=== PATIENT | male | born 1940 | race African-American/Black ===

== ENCOUNTER 2017-01-17 10:39 | Inpatient (IN) ==
[2017-01-17] MEDS ORDERED: ONDANSETRON 4 MG/2 ML VIAL IV PRN (10:58)
[2017-01-17] MEDS ORDERED: PANTOPRAZOLE 40 MG VIAL IV STA (10:58)
[2017-01-17] MEDS ORDERED: SODIUM CHLORIDE 0.9% 1,000 ML IV STA (10:58)
--- NOTE | 2017-01-17 11:02 | Emergency Department Note ---
Tamir Taylor Brooke, am scribing for, and in the presence of, Kg Ibarra MD 11:01 . Stacey Taylor James D, MD, personally performed the services described in this documentation, ascribed by Tania Garnett in my presence, and it is both accurate and complete . Arrival - Arrival Chief Complaint: GI Bleed/Rectal Stated Complaint: weakness losing blood ED Nursing Triage Note: Pt c/o dark colored blood in his stool with weakness x 1 wk. Denies abd pain. Mode of Arrival: Ambulatory Limitations: No Limitations Source: Patient, RN Notes Reviewed Time Seen by Provider: 01/17/17 10:51 - History of Present Illness HPI Narrative: Patient is a 76 year old male who presents to the ED with c/o melena that started about a week ago. Patient says he has been dizzy and had dysuria, also. He denies having any abdominal pain. He does not use Goodys, BC, Aleve, or Advil frequently. He does not have a history of stomach ulcers and has never been scoped in the past. Patient says he started an iron supplement "last week. " He has PMHx of HTN. His Primary Care Provider is Dr. Rajan. He is not a smoker. Onset (ago): week(s) (1) Allergies/Adverse Reactions: Allergies Allergy/AdvReac Type Severity Reaction Status Date / Time No Known Allergies Allergy Verified 01/17/17 10:41 Home Medications: Home Medications Medication Instructions Recorded Confirmed Type Atenolol 50 mg PO DAILY 01/17/17 01/17/17 History Cyanocobalamin (Vitamin B-12) 1,000 mcg PO DAILY 01/17/17 01/17/17 History [Vitamin B-12] Ferrous Sulfate 325 mg PO BID 01/17/17 01/17/17 History Tamsulosin [Flomax] 0.4 mg PO DAILY 01/17/17 01/17/17 History amLODIPine [Norvasc] 10 mg PO DAILY 01/17/17 01/17/17 History Review of System - Review of System 12 point system: reviewed and no additional remarkable complaints except as stated - Review of System Constitutional: Absent: fever Respiratory: Absent: respiratory distress Gastrointestinal: Present: melena. Absent: abdominal pain Genitourinary male: Present: dysuria Skin: Absent: rash Neurological: Present: other (dizziness) Medical,Surgical,& Family Hx - Medical History Cardio: History of: Hypertension Genitourinary: History of: Bladder Problem - Social History Smoking Status: Former smoker Exam Vital Signs: Vital Signs Temperature 98.5 F 01/17/17 10:40 Pulse Rate 141 H 01/17/17 10:40 Respiratory Rate 20 01/17/17 10:40 Blood Pressure 113/54 01/17/17 10:40 O2 Sat by Pulse Oximetry 100 01/17/17 10:40 GENERAL: This is a well-nourished well-developed black male in no apparent distress. VITAL SIGNS: Reviewed HEENT: Head is atraumatic and normocephalic. Pupils are equal round react to light. Extraocular movements are intact. Oropharynx is benign with moist mucous membranes. NECK: Neck is soft and supple without tenderness. There are no masses. There is no lymphadenopathy. LUNGS: Lungs are clear to auscultation. Chest rises symmetrically. There is no chest wall tenderness. CV: Heart is regular rate and rhythm without murmurs rubs or gallops. ABDOMEN: Abdomen is soft, nontender to palpation. There are no abdominal abnormal masses palpated. There is no organomegaly. Bowel sounds are present and active. Rectal: Melenic, heme positive. SKIN: Skin is warm and dry. No rash. EXTREMITIES: Patient has full range of motion without tenderness. There is no pedal edema. NEUROLOGIC: Awake alert and oriented 4. Cranial nerves II through XII are grossly intact. Motor is 5 over 5 in all extremities bilaterally. Course - Consultations Consultation #1: Discussed with hospitalist. Patient will be admitted to their service. Time: 12:09 Results - Labs CBC & BMP: 01/17/17 11:32 Lab Results: I have reviewed the patients labs - Diagnostic Findings Procedure: Abdominal x-ray: image reviewed by me (Nonspecific gas pattern, no free air. Endograft present in the aorta and iliac vessels.), Chest x-ray: image reviewed by me (No infiltrates, no pleural effusions per) Disposition Clinical Impression: Upper GI bleed, Anemia Case discussed with: patient Disposition: Still a Patient Condition: Stable Time of Disposition: 12:07
--- NOTE | 2017-01-17 11:21 | XRay Report ---
XR chest 1V portable Indication: Shortness of breath Comparison: 25 June 2012 Findings: The heart and mediastinum are normal in size and configuration. The pulmonary vascularity is normal in caliber. Lung volumes are increased with prominent bronchial markings. No lung infiltrates, effusions, pneumothorax or other abnormality is demonstrated. Impression: Chronic lung changes. No acute process or significant change. PROCEDURE INTERPRETED AT [facility] DEPARTMENT OF RADIOLOGY Final Report Signed by: Dr. Lopez Raymundo
--- NOTE | 2017-01-17 11:22 | XRay Report ---
XR abdomen complete w decub Indication: Abdominal pain Comparison: 19 August 2011 Findings: No free fluid or free air seen. The bowel gas pattern appears within normal limits. Aortic stent graft is present, appears similar to previous exam. No abnormal calcifications are present. No other abnormality is identified. Impression: No evidence of acute findings or significant change demonstrated. PROCEDURE INTERPRETED AT [facility] DEPARTMENT OF RADIOLOGY Final Report Signed by: Dr. Lopez Raymundo
[2017-01-17 11:45] LABS: Basophils % 0.1 % (0.0-0.8); Eosinophils # 0.1 10*3/uL (0.0-0.87); Eosinophils % 0.8 % (0.00-10.9); Immature Granulocytes % 1.3 %; Immature Granulocytes Absolute 0.21 #; Lymphocytes # 1.7 10*3/uL (1.4-4.0); Mean Corpuscular HGB Conc 29.3 GM/DL (32-36); Mean Corpuscular Hemoglobin 28 PG (27-34); Mean Corpuscular Volume 94.6 FL (87-102); Mean Platelet Volume 9.6 FL (9.6-12.0); Monocytes # 0.9 10*3/uL (0.11-0.8); Monocytes % 5.9 % (1.7-12.7); NRBC # 0.11 10*3/uL; Neutrophils # 12.8 10*3/uL (1.4-7.4); Neutrophils % 80.9 % (38.7-73.9); Platelet Count 460 T/CUMM (130-400); Red Blood Count 1.66 MC/CUMM (3.8-5.5); Red Cell Distribution Width 19.9 % (9.3-17.3); White Blood Count 15.8 T/CUMM (4-12)
[2017-01-17 11:52] LABS: Hematocrit 15.7 VOL% (42.0-52.0); Hemoglobin 4.6 GM/DL (14.0-18.0)
[2017-01-17 11:57] LABS: PT Patient Result 11.1 SECS; Partial Thromboplastin Time 24.7 SECS (0-40)
[2017-01-17] MEDS ORDERED: PANTOPRAZOLE 40 MG VIAL IV ONE (11:58)
[2017-01-17] MEDS ORDERED: SODIUM CHLORIDE 0.9% 250 ML IV PRN ×2 (12:09→12:16)
[2017-01-17 12:12] LABS: Alanine Aminotransferase 9 U/L (16-61); Albumin 2.4 G/DL (3.4-5.0); Alkaline Phosphatase 68 U/L (45-117); Aspartate Amino Transferase 8 U/L (0-37); Bilirubin,Total < 0.39 MG/DL (0.2-1.0); Blood Urea Nitrogen 44 MG/DL (7-18); Calcium 8.2 MG/DL (8.5-10.1); Glucose 118 MG/DL (74-106); Osmolality,Calculated 297.8 MOS/KG (273-304); Potassium 4.2 MMOL/L (3.5-5.1); Sodium 144 MMOL/L (136-145); Total Protein 7.4 G/DL (6.4-8.3)
--- NOTE | 2017-01-17 13:41 | Hospitalist History & Physical ---
Assessment and Plan (1) Acute kidney injury Status: Acute Assessment and plan: BUN and creatinine noted at 44/2.00. This may be largely due to volume depletion. We will gently rehydrate and reassess in a.m. Current Visit: Yes (2) Anemia Status: Acute Assessment and plan: H&H is noted at 4.6/15.7 at the time of admission. The patient had been previously on iron supplements for the treatment of chronic anemia. We will type and screen and transfuse 2 units of packed red blood cells. Gastroenterology consultation has been requested to assist during the clinical encounter. The patient reports a previous blood transfusion in the past about 4 years ago secondary to hematuria. Current Visit: Yes Qualifiers: Anemia type: unspecified type Qualified Code(s): D64.9 - Anemia, unspecified (3) Upper GI bleed Status: Acute Current Visit: Yes History of Present Illness Chief complaint: Rectal bleeding/ weakness History of present illness: This is a very pleasant 68-year-old male that presented to the ED at [facility] this morning for the evaluation of rectal bleeding. The patient has a medical history significant for hypertension and benign prostatic hypertrophy. Patient reports no significant surgical history. The patient reported the onset of symptoms 1 week prior to presentation. Patient denies current NSAID use nor aspirin-containing products. He reports that he was recently seen by his primary care physician regarding this issue. He reports that he was started on iron supplements and told to take the iron supplements daily. He reports that he adhere to what his primary care physician told him however the episodes of bloody stools never stopped. The patient subsequently presented to the ED for further evaluation. The patient was assessed at the time of ED presentation. The patient was noted to be tachycardic with a heart rate noted at 141. Labs were obtained; complete blood count reported white blood cell count at 15.8, hemoglobin 4.6, hematocrit 15.7, platelet count 8460. Basic metabolic profile reported sodium at 144, potassium 4.2, chloride 112, carbon dioxide 23, BUN 44, creatinine 2.30, and glucose at 118. Digital examination was performed at bedside; heme-positive stools were noted. Abdominal x-ray was performed no significant intra- abdominal processes were noted. Chest x-ray was essentially unremarkable for any acute cardiopulmonary processes. After brief discussion with both Dr. Ibarra and Dr. Tineo, the patient will be admitted to the hospitalist services for continuation of care. Due to the severity of the patient's anemia, the patient will be placed in the critical care setting. A gastroenterology consultation will be requested to evaluate and assist during the clinical encounter. Medications have been reviewed and reconciled. CODE STATUS has been discussed, the patient is a FULL CODE. Home Medications Medication Instructions Recorded Confirmed Type Atenolol 50 mg PO DAILY 01/17/17 01/17/17 History Cyanocobalamin (Vitamin B-12) 1,000 mcg PO DAILY 01/17/17 01/17/17 History [Vitamin B-12] Ferrous Sulfate 325 mg PO BID 01/17/17 01/17/17 History Tamsulosin [Flomax] 0.4 mg PO DAILY 01/17/17 01/17/17 History amLODIPine [Norvasc] 10 mg PO DAILY 01/17/17 01/17/17 History Allergies Allergy/AdvReac Type Severity Reaction Status Date / Time No Known Allergies Allergy Verified 01/17/17 10:41 Medical,Surgical,& Family Hx - Medical History Cardio: History of: Hypertension Genitourinary: History of: Bladder Problem - Social History Smoking Status: Former smoker Frequency of Alcohol Use: Rarely Type of Drug Use: None Exam - Constitutional Vitals: Period Temp Pulse Resp BP Sys/Yanez Pulse Ox Last 24 Hr 98.5 F-98.9 F 108-141 20-20 113-140/54-103 100-100 General appearance: normal weight - Head Head exam: Present: normal inspection, normocephalic, atraumatic - Eye Eye exam: Present: EOMI. Absent: conjunctival injection Pupils: Present: MARTY, normal accommodation - ENT ENT exam: Present: normal exam, normal external ear exam, normal oropharynx - Neck Neck exam: Present: normal inspection. Absent: lymphadenopathy, meningismus, tenderness, thyromegaly - Respiratory Respiratory exam: Present: clear to auscultation bilaterally. Absent: rales, rhonchi, stridor, wheezes - Cardiovascular Cardiovascular exam: Present: tachycardia. Absent: carotid bruit, diastolic murmur, gallop, JVD, rubs, other - GI/Abdominal GI/Abdominal exam: Present: normal bowel sounds, soft - Extremities Exam Extremities exam: Present: normal inspection, normal capillary refill, full ROM. Absent: edema - Back Exam Back exam: Present: normal inspection - Neurological Exam Neurological exam: Present: alert, oriented X3, CN II-XII intact - Psychiatric Psychiatric exam: Present: normal affect, normal mood - Skin Skin exam: Present: normal color, warm, dry Results - Labs CBC & BMP: 01/17/17 11:32 01/17/17 11:32 Lab Results: I have reviewed the past 24 hour labs
[2017-01-17 13:56] LABS: Hematocrit 14.3 VOL% (42.0-52.0); Hemoglobin 4.1 GM/DL (14.0-18.0)
--- NOTE | 2017-01-17 15:35 | Gastrointestinal Consult Note ---
Assessment and Plan (1) Melena Status: Acute Assessment and plan: This may simply be the iron that is producing the blackness to the stool that the patient states that he has been on intermittently, however his hematocrit is significantly dropped since he was seen back by Dr. Vu. 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 He did have pandiverticulosis which was also thought potentially be another bleeding source. This typically would produce maroon stools are not black. Black stools indicating a loss of blood above the ligament of Treitz. We will perform upper endoscopy tomorrow to be followed by a colonoscopy on Tuesday morning, 01/19/17. Risks and benefits of the above procedure include but are not limited to: Bleeding, infection, perforation, cardiac and pulmonary compromise, and we did talk about side effects from the hemorrhoidal banding if he requires this. The patient is experiencing grade 3 hemorrhoids with prolapse of hemorrhoidal tissue into the rectum. Current Visit: Yes (2) Personal history of arteriovenous malformation (AVM) Status: Acute Assessment and plan: This was discovered on previous capsule endoscopy back in November 2005 this may be progressive at this point. Will check and see if we can find further AVMs in the small bowel when penetrated by the upper scope and potentially during colonoscopy when we do our evaluation of the terminal ileum. Hold oral iron for the present time. Bowel prep to be given tomorrow afternoon in anticipation of colonoscopy the following day. Current Visit: Yes (3) Acute posthemorrhagic anemia Status: Acute Assessment and plan: As noted above. Current Visit: Yes History of Present Illness Chief complaint: Who has a history of black stools and previous history of GI History of present illness: Mr. Arce is a 76 year old male with EGD and colonoscopy done by Dr. Vu back in 01/06/05, at that time upper endoscopy did not show a bleeding source and there was no evidence of esophagitis or varices. The patient ended up getting a colonoscopy that followed which showed blood that appeared to be coming from the ileocecal valve there was quite dark at the time. There was no evidence of ischemic colitis or bleeding site identified. There was some mild diverticulosis in all segments and this was thought potentially to be a source for bleeding as well. It is not clear from reading through the reports if Dr. Vu got far up into the ileocecal valve to determine whether or not the bleeding appeared to be coming from above definitively. 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 He did well for many years and has since [place] [facility] [place]. Micha bah before his [facility]. Patient's hematocrit is now dropped to 14.3 with a hemoglobin of 4.1 g/dL. Interestingly the coagulation studies are normal with an INR of 1.0 and a PTT of 11.1. The patient is mildly renal and with a BUN of 44 and a creatinine of 2.0 at this time. Liver function tests are within normal limits. He has been taking iron for the last 2 months, but it sounds also like he has chronically required this from time to time and is recently re-asked Dr. Rajan to start this once more. He does have some minimal reflux symptoms. He is also been following with Dr. Campos for hematuria. He does not recall seeing bright red blood per rectum just the dark stool. He feels weak and does have some very mild reflux symptoms and some low-grade constipation with one bowel movement every other day. He has not had colonoscopy since 2004 as mentioned above. Home Medications Medication Instructions Recorded Confirmed Type Atenolol 50 mg PO DAILY 01/17/17 01/17/17 History Cyanocobalamin (Vitamin B-12) 1,000 mcg PO DAILY 01/17/17 01/17/17 History [Vitamin B-12] Ferrous Sulfate 325 mg PO BID 01/17/17 01/17/17 History Tamsulosin [Flomax] 0.8 mg PO DAILY 01/17/17 01/17/17 History amLODIPine [Norvasc] 10 mg PO DAILY 01/17/17 01/17/17 History Allergies Allergy/AdvReac Type Severity Reaction Status Date / Time No Known Allergies Allergy Verified 01/17/17 10:41 Medical,Surgical,& Family Hx - Medical History Cardio: History of: Aneurysm, Hypertension Renal: History of: Renal Problems (urinating blood with burning) Genitourinary: History of: Bladder Problem Gastrointestinal: History of: Gastrointestinal Bleed Hematology: History of: Anemia - Surgical History Cardiac Surgeries: Sugical HX of: Cardiac Surgery (anneurysm repair?) - Social History Smoking Status: Former smoker Frequency of Alcohol Use: Rarely Type of Drug Use: None Review of systems: Constitutional: Denies fever, chills, nausea, and vomiting Eyes: Denies dry eyes, and scleral icterus HENT: Denies headaches Cardiovascular: Denies acute chest pain and claudication Respiratory: Denies shortness of breath, wheezing, and difficulty breathing, denies cough Gastrointestinal: As noted in the HPI Genitourinary: Denies dysuria and hematuria Neurologic: Denies vision loss, and loss of sensation Musculoskeletal: The patient does admit to joint swelling, joint stiffness, and muscular weakness Psychiatric: Denies depression and nicole symptoms Heme-Lymph: Denies easy bruising, lymph node enlargement or tenderness, night sweats, excessive bleeding Allergies-immunologic: Denies pruritus and rhinorrhea Exam - Constitutional Vitals: Period Temp Pulse Resp BP Sys/Yanez Pulse Ox Last 24 Hr 98.5 F-98.9 F 105-141 14-26 113-140/54-103 100-100 General appearance: no acute distress Exam: Constitutional: Well-developed, well-nourished, alert, and in no acute distress Head and face: Head: Normocephalic atraumatic Eyes: Conjunctiva without injection, no gross scleral icterus, pupils equal and round bilaterally Ears: Intact to conversation in both ears Nose: External appearance is normal, nares patent Mouth: Oral mucous membranes moist without erythema dentition noted to be without erosion Neck: Normal appearance, no masses or tenderness, trachea midline Thyroid: Gland midline and appropriate size for age Respiratory: Normal respiratory effort, clear to auscultation without wheezes, rhonchi or rales Cardiovascular: Regular rate and rhythm, normal S1, S2, the exam is without rubs, murmurs or gallops. Gastrointestinal: Nontender to palpation, normal active bowel sounds, tone normal without rigidity or guarding, no masses present, no hepatomegaly, no spleen tip felt. Rectal exam shows very high rectal tone stool was black and grossly guaiac positive. Lymphatic: Neck without adenopathy, axilla without lymphadenopathy present Musculoskeletal: Right and left lower extremities without evidence of edema Skin and subcutaneous tissue: No rashes or ulcerations noted, normal skin turgor, digits and nails without clubbing/cyanosis/deformities. Neurologic: The patient is grossly oriented to person place and time, cranial nerves show tongue movements are normal with normal tongue extrusion midline, light touch sensation is intact. Psychiatric: No hallucinations or delusions are present, does not appear depressed Results - Labs CBC & BMP: 01/17/17 13:30 01/17/17 11:32
[2017-01-17 20:04] LABS: Hematocrit 15.3 VOL% (42.0-52.0)
[2017-01-17 20:05] LABS: Hemoglobin 4.4 GM/DL (14.0-18.0)
[2017-01-17] MEDS: PANTOPRAZOLE 40 MG VIAL IV SCH (21:00)
[2017-01-18 05:15] LABS: Hematocrit 20.6 VOL% (42.0-52.0)
[2017-01-18 05:19] LABS: Basophils % 0.2 % (0.0-0.8); Eosinophils # 0.3 10*3/uL (0.0-0.87); Eosinophils % 2.8 % (0.00-10.9); Hematocrit 20.7 VOL% (42.0-52.0); Hemoglobin 6.3 GM/DL (14.0-18.0); Immature Granulocytes % 0.9 %; Immature Granulocytes Absolute 0.09 #; Lymphocytes # 1.6 10*3/uL (1.4-4.0); Lymphocytes % 16.1 % (21.2-54.2); Mean Corpuscular HGB Conc 30.9 GM/DL (32-36); Mean Corpuscular Hemoglobin 29 PG (27-34); Mean Corpuscular Volume 92.8 FL (87-102); Mean Platelet Volume 9.6 FL (9.6-12.0); Monocytes # 0.6 10*3/uL (0.11-0.8); Monocytes % 6.4 % (1.7-12.7); NRBC # 0.06 10*3/uL; Neutrophils # 7.4 10*3/uL (1.4-7.4); Neutrophils % 73.6 % (38.7-73.9); Platelet Count 396 T/CUMM (130-400); Red Blood Count 2.23 MC/CUMM (3.8-5.5); Red Cell Distribution Width 18.2 % (9.3-17.3); White Blood Count 10.1 T/CUMM (4-12)
[2017-01-18 05:21] LABS: PT Patient Result 11.1 SECS
[2017-01-18 05:22] LABS: Hemoglobin 6.4 GM/DL (14.0-18.0)
[2017-01-18] MEDS: BISACODYL 5 MG TABLET PO SCH ×4 (06:09→17:30)
[2017-01-18] MEDS ORDERED: PROPOFOL 200 MG/20 ML VIAL IV ONE (09:03)
[2017-01-18] MEDS ORDERED: LIDOCAINE 2% 5 ML VIAL ONE (09:03)
--- NOTE | 2017-01-18 09:17 | Operative Note ---
Date of procedure: 01/18/17 Pre-op diagnosis: Melena, posthemorrhagic anemia, prior history of small bowel AVMs. Post-op diagnosis: other (No gross evidence of an upper GI bleeding source., some mild gastritis seen and a small hiatal hernia but otherwise relatively normal upper endoscopy.) Procedure: PROCEDURE: Esophagogastroduodenoscopy (EGD) with cold biopsy for pathology REFERRING PHYSICIAN: Phyllis Tineo MD INDICATIONS: Melena now with posthemorrhagic anemia and a prior history of small bowel AVMs as noted on capsule endoscopy by Dr. Vu. Hematocrit previously 14.3 now up to 20% posttransfusion. The prior H&P was reviewed and interrim changes are as noted: No change from GI consultation on 12/18/16. ENDOSCOPIST: Portillo Momin MD ENDOSCOPE: [employer] Video 100 System upper endoscope ASA CLASS: EXAM: CV: regular rate and rhythm respiratory: Clear without wheezes abdominal: active bowel sounds MEDICATION: Per nursing anesthesia protocol, see their notes PROCEDURE: After discussion of the potential risks and benefits of upper endoscopy, the informed consent was obtained. The patient was then placed in the left lateral decubitus position where sedation was achieved as noted above. Esophageal intubation was performed without difficulty, and the endoscope was advanced through the esophagus, stomach and duodenum. A slow withdrawal was then performed with retroflexion in the stomach for careful inspection of the incisura angularis, fundus and cardia. The scope was then returned to a neutral position and withdrawn through the esophagus. The patient tolerated the procedure well and without complication. BIOPSIES: Gastric antrum/body, duodenal biopsies obtained PHOTOGRAPHS: Obtained FINDINGS: Hypopharynx and Larynx: Normal Esohagoscopy Upper and middle thirds: Normal Lower third normal Esophogastric junctions: Normal if tortuous, no gross evidence of stricturing, Keller's or esophagitis. Gastroscopy: Cardia/Fundus: 2 cm hiatal hernia noted Body: Normal Antrum and pylorus mild erythema, biopsied for gastritis Duodenoscopy: Bulb normal-appearing, biopsied for sprue Second and third portions: Normal-appearing, biopsied for sprue IMPRESSION: No gross evidence of an upper GI bleeding source., some mild gastritis seen and a small hiatal hernia but otherwise relatively normal upper endoscopy. RECOMMENDATIONS: Follow up for biopsy results in 1-2 weeks by phone [phone] Continue anti-gastroesophageal reflux measures (avoid carbonated and acidic beverages, avoid eating within 2 hours of bedtime, avoid tight fitting clothing , and elevate the front bed posts 6 inches prior to sleeping. Given this patient's extreme drop in hematocrit, and the prior melana that has been obscuring colonoscopy on his last visit with Dr. Vu will go ahead and repeat colonoscopy in addition to look for evidence of a bleeding source in the colon as well. Portillo Momin MD COPY TO: Phyllis Tineo MD Anesthesia: MAC Surgeon / Physician: Portillo Momin Estimated blood loss: minimal Specimens: other (Gastric antrum/body, duodenum rule out sprue) Condition: stable Disposition: post procedure unit ([facility]) Results - Labs CBC & BMP: 01/18/17 04:41 01/17/17 11:32 Discharge Plan - Discharge Medications No Action amLODIPine [Norvasc] 10 mg PO DAILY Tamsulosin [Flomax] 0.8 mg PO DAILY Ferrous Sulfate 325 mg PO BID Cyanocobalamin (Vitamin B-12) [Vitamin B-12] 1,000 mcg PO DAILY Atenolol 50 mg PO DAILY - Follow Up or Referral - Forms/Instructions
--- NOTE | 2017-01-18 09:22 | Gastrointestinal Progress Note ---
Assessment and Plan (1) Melena Status: Acute Assessment and plan: This may simply be the iron that is producing the blackness to the stool that the patient states that he has been on intermittently, however his hematocrit is significantly dropped since he was seen back by Dr. Vu. 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 He did have pandiverticulosis which was also thought potentially be another bleeding source. This typically would produce maroon stools are not black. Black stools indicating a loss of blood above the ligament of Treitz. We will perform upper endoscopy tomorrow to be followed by a colonoscopy on Tuesday morning, 01/19/17. Risks and benefits of the above procedure include but are not limited to: Bleeding, infection, perforation, cardiac and pulmonary compromise, and we did talk about side effects from the hemorrhoidal banding if he requires this. The patient is experiencing grade 3 hemorrhoids with prolapse of hemorrhoidal tissue into the rectum. 01/18/17--Patient is having no further black stools, he has responded to the transfusions given with acute increase in his hematocrit from 14-20%. Patient has been experiencing some hemorrhoidal prolapse with his passage of stools, we will likely proceed with colonoscopy tomorrow as there was no cause for the patient's dark stools today and anemia noted on upper endoscopy today. He had some mild erythema in his stomach but otherwise normal upper endoscopy aside from a hiatal hernia. Current Visit: Yes (2) Personal history of arteriovenous malformation (AVM) Status: Acute Assessment and plan: This was discovered on previous capsule endoscopy back in November 2005 this may be progressive at this point. Will check and see if we can find further AVMs in the small bowel when penetrated by the upper scope and potentially during colonoscopy when we do our evaluation of the terminal ileum. Hold oral iron for the present time. Bowel prep to be given tomorrow afternoon in anticipation of colonoscopy the following day. 01/18/17--This may end up being the cause for the patient's bleeding however given the amount of time that he is had since his last colonoscopy I think we need to recheck for lower GI bleeding sources as well. Colonoscopy planned for tomorrow. Risks include bleeding, infection, perforation, cardiac and pulmonary compromise as these were also present for the upper endoscopy today. Further recommendations post colonoscopy. Current Visit: Yes (3) Acute posthemorrhagic anemia Status: Acute Assessment and plan: As noted above. 01/18/17--the patient's hematocrit is stable, increasing posttransfusion. Continued observation is required. Clear liquid diet today with upcoming prep for tomorrow. Current Visit: Yes Gastroenterology - PN: Subj Interval history: No new complaints Exam (Progress Note) - Constitutional Vitals: Period Temp Pulse Resp BP Sys/Yanez Pulse Ox Last 24 Hr 97.1 F-99.5 F 83-141 14-28 102-157/53-103 100-100 General appearance: no acute distress - Eye Eye exam: Present: EOMI - Respiratory Respiratory exam: Present: clear to auscultation bilaterally - Cardiovascular Cardiovascular exam: Present: regular rate and rhythm - GI/Abdominal GI/Abdominal exam: Present: normal bowel sounds, soft - Extremities Exam Extremities exam: Absent: edema - Neurological Exam Neurological exam: Present: alert, oriented X3, CN II-XII intact. Absent: motor sensory deficit - Psychiatric Psychiatric exam: Present: normal affect, normal mood - Skin Skin exam: Present: warm Results - Labs CBC & BMP: 01/18/17 04:41 01/17/17 11:32
--- NOTE | 2017-01-18 09:23 | Anesthesia Post-Op ---
Anesthesia Post OP - Post Ansesthetic Evaluation Patient seen in post op: Yes Resp: within normal limits CV: within normal limits Mental: within normal limits Temp: within normal limits [id number]-[id number]: within normal limits Nausea and Vomiting: within normal limits Pain: within normal limits
[2017-01-18] MEDS: PANTOPRAZOLE 40 MG VIAL IV SCH ×2 (10:15→21:05)
[2017-01-18] MEDS: TAMSULOSIN 0.4 MG CAPSULE PO SCH (10:15)
--- NOTE | 2017-01-18 11:24 | Hospitalist Progress Note ---
Assessment and Plan (1) GIB (gastrointestinal bleeding) Status: Acute Assessment and plan: 1)GIB- no source in upper tract. has a history of SB AVM seen on pill cam in the past. Cscope in the morning. transfuse with 2 more units. and continue serial H&H. On PPI. 2)CHARLIE- improving with transfusion/volume. recheck creatinine in the morning. 3)bladder problem with frequent UTI 4)reassess for transfer out of ICU later this afternoon. Current Visit: Yes (2) Acute kidney injury Status: Acute Current Visit: Yes (3) Melena Status: Acute Current Visit: Yes (4) Personal history of arteriovenous malformation (AVM) Status: Acute Current Visit: Yes (5) Acute posthemorrhagic anemia Status: Acute Current Visit: Yes Hospitalist: Subjective Interval history: Mr Arce is feeling better after transfusion though his HGB is around 6. His blood must come from [place] because he has an antibody, and I have ordered 2 more units He denies nausea or vomiting. At EGD there was not a source of GIB seen, so he will have cscope in the morning. Exam - Constitutional Vitals: Period Temp Pulse Resp BP Sys/Yanez Pulse Ox Last 24 Hr 97.1 F-99.5 F 83-141 14-28 102-157/53-103 95-100 General appearance: normal weight, no acute distress - Eye Eye exam: Present: EOMI. Absent: scleral icterus - Respiratory Respiratory exam: Present: clear to auscultation bilaterally - Cardiovascular Cardiovascular exam: Present: regular rate and rhythm - GI/Abdominal GI/Abdominal exam: Present: normal bowel sounds, soft. Absent: tenderness - Extremities Exam Extremities exam: Absent: edema - Neurological Exam Neurological exam: Present: alert, oriented X3 Results - Labs CBC & BMP: 01/18/17 04:41 01/17/17 11:32 Lab Results: I have reviewed the past 24 hour labs
[2017-01-18 12:18] LABS: Hematocrit 22.4 VOL% (42.0-52.0); Hemoglobin 6.9 GM/DL (14.0-18.0)
[2017-01-18] MEDS ORDERED: SODIUM CHLORIDE 0.9% 250 ML IV SCH (14:00)
[2017-01-18] MEDS ORDERED: POLYETHYLENE GLYCOL 3350/ELECTROLYTES 4,000 ML BOTTLE PO ONE (16:00)
[2017-01-18] MEDS ORDERED: POLYETHYLENE GLYCOL POWDER 255 GM BOTTLE PO ONE (18:00)
[2017-01-18] MEDS ORDERED: MAGNESIUM CITRATE 300 ML BOTTLE PO ONE (21:00)
[2017-01-19] MEDS: BISACODYL 5 MG TABLET PO SCH ×2 (00:12→03:33)
[2017-01-19 07:33] LABS: Basophils % 0.1 % (0.0-0.8); Eosinophils # 0.2 10*3/uL (0.0-0.87); Eosinophils % 1.5 % (0.00-10.9); Hematocrit 30.9 VOL% (42.0-52.0); Immature Granulocytes % 0.6 %; Immature Granulocytes Absolute 0.08 #; Lymphocytes # 1.3 10*3/uL (1.4-4.0); Lymphocytes % 10.3 % (21.2-54.2); Mean Corpuscular HGB Conc 31.4 GM/DL (32-36); Mean Corpuscular Hemoglobin 29 PG (27-34); Mean Corpuscular Volume 91.7 FL (87-102); Mean Platelet Volume 9.7 FL (9.6-12.0); Monocytes # 0.7 10*3/uL (0.11-0.8); Monocytes % 5.6 % (1.7-12.7); NRBC # 0.02 10*3/uL; Neutrophils # 10.6 10*3/uL (1.4-7.4); Neutrophils % 81.9 % (38.7-73.9); Platelet Count 448 T/CUMM (130-400); Red Cell Distribution Width 18.4 % (9.3-17.3)
[2017-01-19 07:44] LABS: PT Patient Result 10.9 SECS
[2017-01-19 07:47] LABS: Red Blood Count 3.37 MC/CUMM (3.8-5.5)
[2017-01-19 07:48] LABS: Hemoglobin 9.7 GM/DL (14.0-18.0)
[2017-01-19 08:09] LABS: Calcium 8.4 MG/DL (8.5-10.1); Osmolality,Calculated 288.8 MOS/KG (273-304); Potassium 4.2 MMOL/L (3.5-5.1)
[2017-01-19] MEDS: PANTOPRAZOLE 40 MG VIAL IV SCH (10:04)
[2017-01-19] MEDS: TAMSULOSIN 0.4 MG CAPSULE PO SCH (10:04)
--- NOTE | 2017-01-19 11:30 | Pathology Report from [facility] ---
[facility] ACCESSION # : [id number] PATIENT NAME : Jesus Cedillo ORDERING DR : Portillo Momin MD CLINICAL HX: GI bleed POST-OP DX: Same SPECIMEN INFO: #1 Small bowel #2 CELE GROSS DESCRIPTION: Received in formalin in two parts labeled:#1 JESUS CEDILLO & #1 is a yellow holt mucosal tissue fragment measuring 0.9 x 0.4 cm submitted in cassette #1.#2 JESUS CEDILLO & #2 is an aggregate of white holt mucosal mucosal tissue measuring 1 x 0.3 cm submitted in cassette #2. DIAGNOSIS FOR JESUS CEDILLO: #1 SMALL BOWEL BIOPSY: Benign small bowel mucosa with normal villous architecture and mild chronic inflammation. No evidence of sprue. #2 GASTRIC ANTRAL BIOPSY: Mild chronic superficial gastritis. No evidence of malignancy. H. pylori not seen on H&E or special stain with appropriate control. COLLECTED DATE: 01/18/2017 [facility] REPORT DATE: 01/19/2017 ELECTRONICALLY SIGNED BY: Ludwig Odell III, M.D. 01/19/2017 - 9:40:50 [facility]
[2017-01-19 11:50] LABS: Hematocrit 30.4 VOL% (42.0-52.0); Hemoglobin 9.4 GM/DL (14.0-18.0)
--- NOTE | 2017-01-19 13:35 | Operative Note ---
Date of procedure: 01/19/17 Pre-op diagnosis: Initial hematocrit 15.3% now up to 30%, abdominal pain Post-op diagnosis: other (This patient had a single polyp that was not thought to be the source of any bleeding. He does have some large internal hemorrhoids thought potentially be a source for bleeding as well as pandiverticulosis of a mild nature all the way up to the ascending colon.) Procedure: PROCEDURE: Colonoscopy with hot biopsy polypectomy REFERRING PHYSICIAN: Phyllis Tineo MD INDICATIONS: This patient had a hematocrit of 15% upon admission now up to 30 % status post transfusion the prior H&P was reviewed and interrim changes are as noted: No change from GI consultation 2 days ago. ENDOSCOPIST: Portillo Momin MD ENDOSCOPE: [employer] 100 System colonoscope COLON PREPARATION: 238 gm of PEG containing laxative and 1.9 liters of gatoraid/sports drink and dulcolax 15 mg q8 hours x 3 ASA CLASS: 3 EXAM: CV: regular rate and rhythm Respiratory: Clear without wheezes Abdominal: active bowel sounds Rectal: Good tone, no fissures or fistulas MEDICATION: Per nursing anesthesia protocol, see their notes PROCEDURE: After discussion of the potential risks and benefits of colonoscopy, the informed consent was obtained, from patient or health care surrogate. The patient was then placed in the left lateral decubitus position where sedation was achieved as noted above. Rectal examination was followed by insertion of the colonoscope. The colonoscope was passed under direct visualization to the cecum. Advancement was facilitated by insertion/withdrawl techniques, abdominal pressure and patient positioning. Once the cecal pole was reached, slow withdrawal was performed with the findings as noted below. The patient tolerated the procedure well and without complication. QUALITY OF PREP: Excellent WITHDRAWL TIME: 6 minutes 23 seconds BIOPSIES: Ascending colon polyp PHOTOGRAPHS: Obtained FINDINGS: The musoca appeared normal in the following regions: rectum, sigmoid colon, descending colon, splenic flexure, transverse colon, hepatic flexure, and cecum. Position within the cecum was confirmed by ileocecal valve , appendiceal oriface, and the convergence of folds (crows foot). No colitis, mass or AVM was noted throughout the colon. Mild pain and diverticulosis noted from proximal ascending all the way down to the sigmoid. There was a single 7 mm polyp noted in the distal ascending colon which was removed by hot biopsy polypectomy. This did not appear to be a source for the patient's bleeding, there was no gross evidence of blood but there were large internal hemorrhoids noted on retroflex thought to be a source of some of the patient's bleeding. No banding was pursued at this point. Intubation of the TI was achieved x 5 cm with normal appearence, no evidence of Crohn's disease. IMPRESSION: This patient had a single polyp that was not thought to be the source of any bleeding. He does have some large internal hemorrhoids thought potentially be a source for bleeding as well as pandiverticulosis of a mild nature all the way up to the ascending colon. RECOMMENDATIONS: High fiber diet Repeat colonosocopy will be in 3 years for greater than 3 adenomas, 5 years for 1-3 adenomas, or 10 years for hyperplastic polyps (only) or if no polyps discovered. If the patient develops the significant GI bleed with suggest obtaining tagged red blood cell scan for localization. If patient has low-grade bleeding without evidence of melena or bright red blood per rectum our next test should be a repeat capsule endoscopy to look for small bowel AVMs as had been seen previously Citrucel 1 tablespoon in 12 oz juice BID: 1 bottle: :11 Follow up by phone for biopsy results in 1-2 weeks by phone We can resume a solid diet in this patient. He can potentially be discharged today or watch for another day up on the floor. GI workup is complete at this point. Portillo Momin MD COPY TO: Phyllis Tineo MD Anesthesia: MAC Surgeon / Physician: Portillo Momin Estimated blood loss: minimal Specimens: other (Distal ascending colon polyp) Condition: stable Disposition: post procedure unit (G.I. Suite) Results - Labs CBC & BMP: 01/19/17 11:12 01/19/17 06:18 Discharge Plan - Discharge Medications No Action amLODIPine [Norvasc] 10 mg PO DAILY Tamsulosin [Flomax] 0.8 mg PO DAILY Ferrous Sulfate 325 mg PO BID Cyanocobalamin (Vitamin B-12) [Vitamin B-12] 1,000 mcg PO DAILY Atenolol 50 mg PO DAILY - Follow Up or Referral - Forms/Instructions
--- NOTE | 2017-01-19 13:36 | Anesthesia Post-Op ---
Anesthesia Post OP - Post Ansesthetic Evaluation Patient seen in post op: Yes Resp: within normal limits CV: within normal limits Mental: within normal limits Temp: within normal limits Babn-Hj-Hzeikyuen: within normal limits Nausea and Vomiting: within normal limits Pain: within normal limits
--- NOTE | 2017-01-19 13:41 | Gastrointestinal Progress Note ---
Assessment and Plan (1) Melena Status: Acute Assessment and plan: This may simply be the iron that is producing the blackness to the stool that the patient states that he has been on intermittently, however his hematocrit is significantly dropped since he was seen back by Dr. Vu. 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 He did have pandiverticulosis which was also thought potentially be another bleeding source. This typically would produce maroon stools are not black. Black stools indicating a loss of blood above the ligament of Treitz. We will perform upper endoscopy tomorrow to be followed by a colonoscopy on Tuesday morning, 01/19/17. Risks and benefits of the above procedure include but are not limited to: Bleeding, infection, perforation, cardiac and pulmonary compromise, and we did talk about side effects from the hemorrhoidal banding if he requires this. The patient is experiencing grade 3 hemorrhoids with prolapse of hemorrhoidal tissue into the rectum. 01/18/17--Patient is having no further black stools, he has responded to the transfusions given with acute increase in his hematocrit from 14-20%. Patient has been experiencing some hemorrhoidal prolapse with his passage of stools, we will likely proceed with colonoscopy tomorrow as there was no cause for the patient's dark stools today and anemia noted on upper endoscopy today. He had some mild erythema in his stomach but otherwise normal upper endoscopy aside from a hiatal hernia. 01/19/17--the patient does not show any evidence of a bleeding source in the colon. This patient had a single polyp that was not thought to be the source of any bleeding. He does have some large internal hemorrhoids thought potentially be a source for bleeding as well as pandiverticulosis of a mild nature all the way up to the ascending colon. Hematocrit is now improved up from 15.3% up to 30.4%. He is doing fine. He can likely be discharged home to follow-up with me in the office in about 6 weeks for reevaluation. His GI workup is complete. If he presents with further anemia will definitely consider getting a capsule endoscopy again as this patient has been shown in the past to have AVMs of the small bowel. Current Visit: Yes (2) Personal history of arteriovenous malformation (AVM) Status: Acute Assessment and plan: This was discovered on previous capsule endoscopy back in November 2005 this may be progressive at this point. Will check and see if we can find further AVMs in the small bowel when penetrated by the upper scope and potentially during colonoscopy when we do our evaluation of the terminal ileum. Hold oral iron for the present time. Bowel prep to be given tomorrow afternoon in anticipation of colonoscopy the following day. 01/18/17--This may end up being the cause for the patient's bleeding however given the amount of time that he is had since his last colonoscopy I think we need to recheck for lower GI bleeding sources as well. Colonoscopy planned for tomorrow. Risks include bleeding, infection, perforation, cardiac and pulmonary compromise as these were also present for the upper endoscopy today. Further recommendations post colonoscopy. 01/19/17--Patient's colonoscopy demonstrated findings as noted above, he is safe to be discharged in my opinion to follow-up with me in 6 weeks at which time I will repeat this CBC and see if he will require a repeat capsule endoscopy. Hopefully not. Continue on the Protonix on a daily basis, prescription written and patient written to get a renal diet, will observe on this medication with potential discharge later on today or tomorrow depending on internal medicine. Current Visit: Yes (3) Acute posthemorrhagic anemia Status: Acute Assessment and plan: As noted above. 01/18/17--the patient's hematocrit is stable, increasing posttransfusion. Continued observation is required. Clear liquid diet today with upcoming prep for tomorrow. 01/19/17--No gross evidence of a bleeding source seen on upper or lower endoscopy. We may have to do capsule endoscopy as an outpatient later. Current Visit: Yes Gastroenterology - PN: Subj Interval history: No new complaints Exam (Progress Note) - Constitutional Vitals: Period Temp Pulse Resp BP Sys/Yanez Pulse Ox Last 24 Hr 97.5 F-99.8 F 88-115 16-28 120-164/62-88 97-100 General appearance: mild distress - Eye Eye exam: Present: EOMI Pupils: Present: MARTY - Respiratory Respiratory exam: Present: clear to auscultation bilaterally - Cardiovascular Cardiovascular exam: Present: regular rate and rhythm - GI/Abdominal GI/Abdominal exam: Present: normal bowel sounds, soft. Absent: distended, tenderness, rebound - Extremities Exam Extremities exam: Absent: edema - Neurological Exam Neurological exam: Present: alert, oriented X3 - Psychiatric Psychiatric exam: Present: normal affect, normal mood Results - Labs CBC & BMP: 01/19/17 11:12 01/19/17 06:18
--- NOTE | 2017-01-19 14:01 | Hospitalist Progress Note ---
Assessment and Plan (1) Acute kidney injury Status: Acute Assessment and plan: Downtrending Believe that this is most likely to have a component of CKD Current Visit: Yes (2) Melena Status: Acute Current Visit: Yes (3) Acute posthemorrhagic anemia Status: Acute Current Visit: Yes (4) GIB (gastrointestinal bleeding) Status: Acute Assessment and plan: Colonoscopy today with large hemorrhoids and pandiverticulosis H/H responded well to blood transfusion Given the degree of his anemia on admission, would like to monitor until the morning, check H/H, discharge then if remains at acceptable range Current Visit: Yes Hospitalist: Subjective Interval history: No acute events overnight. Colonoscopy today. No complaints this morning Exam - Constitutional Vitals: Period Temp Pulse Resp BP Sys/Yanez Pulse Ox Last 24 Hr 97.5 F-99.8 F 88-115 16-28 101-164/62-88 97-100 General appearance: normal weight - Head Head exam: Present: normocephalic, atraumatic - Eye Eye exam: Present: EOMI Pupils: Present: MARTY - ENT ENT exam: Present: normal exam - Neck Neck exam: Present: normal inspection - Respiratory Respiratory exam: Present: clear to auscultation bilaterally. Absent: wheezes - Cardiovascular Cardiovascular exam: Present: regular rate and rhythm - GI/Abdominal GI/Abdominal exam: Present: normal bowel sounds, soft. Absent: tenderness, rebound - Extremities Exam Extremities exam: Present: normal inspection - Back Exam Back exam: Present: normal inspection - Neurological Exam Neurological exam: Present: alert, oriented X3 - Psychiatric Psychiatric exam: Present: normal affect, normal mood - Skin Skin exam: Present: warm, intact Results - Labs CBC & BMP: 01/19/17 11:12 01/19/17 06:18
[2017-01-20 06:26] LABS: Basophils % 0.1 % (0.0-0.8); Eosinophils # 0.3 10*3/uL (0.0-0.87); Hematocrit 29.3 VOL% (42.0-52.0); Immature Granulocytes % 0.5 %; Immature Granulocytes Absolute 0.06 #; Lymphocytes # 1.5 10*3/uL (1.4-4.0); Lymphocytes % 13.1 % (21.2-54.2); Mean Corpuscular HGB Conc 30.7 GM/DL (32-36); Mean Corpuscular Hemoglobin 29 PG (27-34); Mean Corpuscular Volume 92.7 FL (87-102); Mean Platelet Volume 9.5 FL (9.6-12.0); Monocytes # 0.7 10*3/uL (0.11-0.8); Monocytes % 6.3 % (1.7-12.7); Neutrophils # 8.6 10*3/uL (1.4-7.4); Platelet Count 450 T/CUMM (130-400); Red Blood Count 3.16 MC/CUMM (3.8-5.5); White Blood Count 11.2 T/CUMM (4-12)
--- NOTE | 2017-01-20 06:32 | Gastrointestinal Progress Note ---
Assessment and Plan (1) Melena Status: Acute Assessment and plan: This may simply be the iron that is producing the blackness to the stool that the patient states that he has been on intermittently, however his hematocrit is significantly dropped since he was seen back by Dr. Vu. 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 He did have pandiverticulosis which was also thought potentially be another bleeding source. This typically would produce maroon stools are not black. Black stools indicating a loss of blood above the ligament of Treitz. We will perform upper endoscopy tomorrow to be followed by a colonoscopy on Tuesday morning, 01/19/17. Risks and benefits of the above procedure include but are not limited to: Bleeding, infection, perforation, cardiac and pulmonary compromise, and we did talk about side effects from the hemorrhoidal banding if he requires this. The patient is experiencing grade 3 hemorrhoids with prolapse of hemorrhoidal tissue into the rectum. 01/18/17--Patient is having no further black stools, he has responded to the transfusions given with acute increase in his hematocrit from 14-20%. Patient has been experiencing some hemorrhoidal prolapse with his passage of stools, we will likely proceed with colonoscopy tomorrow as there was no cause for the patient's dark stools today and anemia noted on upper endoscopy today. He had some mild erythema in his stomach but otherwise normal upper endoscopy aside from a hiatal hernia. 01/19/17--the patient does not show any evidence of a bleeding source in the colon. This patient had a single polyp that was not thought to be the source of any bleeding. He does have some large internal hemorrhoids thought potentially be a source for bleeding as well as pandiverticulosis of a mild nature all the way up to the ascending colon. Hematocrit is now improved up from 15.3% up to 30.4%. He is doing fine. He can likely be discharged home to follow-up with me in the office in about 6 weeks for reevaluation. His GI workup is complete. If he presents with further anemia will definitely consider getting a capsule endoscopy again as this patient has been shown in the past to have AVMs of the small bowel. 01/20/17--this patient had an EGD that was done on 01/18/17 which demonstrated some very mild gastritis and a 2 cm hiatal hernia but was otherwise normal- appearing, colonoscopy done yesterday shows pandiverticulosis and large internal hemorrhoids as well as a small polyp that was removed but was otherwise unremarkable for bleeding source as well. This is a mirror image from previous workup done that required capsule endoscopy to demonstrate small bowel AVMs thought to be a source of the previous bleeding. At this point he has not had any further bowel movements we do not now if he is having any rectal bleeding but his hematocrit is stable (29%) he could likely be discharged today to follow-up in my office in 6-8 weeks for repeat hematocrit and possibly referral to capsule endoscopy. Current Visit: Yes (2) Personal history of arteriovenous malformation (AVM) Status: Acute Assessment and plan: This was discovered on previous capsule endoscopy back in November 2005 this may be progressive at this point. Will check and see if we can find further AVMs in the small bowel when penetrated by the upper scope and potentially during colonoscopy when we do our evaluation of the terminal ileum. Hold oral iron for the present time. Bowel prep to be given tomorrow afternoon in anticipation of colonoscopy the following day. 01/18/17--This may end up being the cause for the patient's bleeding however given the amount of time that he is had since his last colonoscopy I think we need to recheck for lower GI bleeding sources as well. Colonoscopy planned for tomorrow. Risks include bleeding, infection, perforation, cardiac and pulmonary compromise as these were also present for the upper endoscopy today. Further recommendations post colonoscopy. 01/19/17--Patient's colonoscopy demonstrated findings as noted above, he is safe to be discharged in my opinion to follow-up with me in 6 weeks at which time I will repeat this CBC and see if he will require a repeat capsule endoscopy. Hopefully not. Continue on the Protonix on a daily basis, prescription written and patient written to get a renal diet, will observe on this medication with potential discharge later on today or tomorrow depending on internal medicine. 01/20/17--as noted above patient's EGD and colonoscopy were unremarkable for bleeding source, this patient has had a history of AVMs in his small bowel on previous capsule endoscopy. I am not sure why these would start bleeding however it seems to have stopped at this point and he can likely follow-up with me in the office as noted above in 6-8 weeks. He is having some rectal pain on passage of stool and will write him for some Analpram to use over the next 2 weeks. Prescription for Protonix written and left in the front of the chart, will sign off at this time as the patient appears to be stable. Current Visit: Yes (3) Acute posthemorrhagic anemia Status: Acute Assessment and plan: As noted above. 01/18/17--the patient's hematocrit is stable, increasing posttransfusion. Continued observation is required. Clear liquid diet today with upcoming prep for tomorrow. 01/19/17--No gross evidence of a bleeding source seen on upper or lower endoscopy. We may have to do capsule endoscopy as an outpatient later. 01/20/17--as noted above. Current Visit: Yes Gastroenterology - PN: Subj Interval history: The patient is having some soreness when he urinates, he seems to have some fullness on the belly examination in the left lower abdomen of unclear etiology. He did have mild pandiverticulosis throughout the colon and some very large internal hemorrhoids which are giving him some tenderness rectally. Exam (Progress Note) - Constitutional Vitals: Period Temp Pulse Resp BP Sys/Yanez Pulse Ox Last 24 Hr 97.5 F-98.9 F 86-115 16-20 101-164/66-93 96-100 Results - Labs CBC & BMP: 01/20/17 05:19 01/19/17 06:18
[2017-01-20] MEDS ORDERED: PRAMOXINE/HYDROCORTISONE RECTAL FOAM 10 GM CAN TOP PRN (06:38)
[2017-01-20 06:41] LABS: PT Patient Result 11.1 SECS
--- NOTE | 2017-01-20 08:06 | Discharge Summary ---
<Verónica Fields - Last Filed: 01/20/17 07:58> Hospital Course - Hospital Course Hospital Course: This is a 68-year-old male that presented to the ED at [facility] on morning the morning of January 17, 2017 for the evaluation of rectal bleeding. The patient has a medical history significant for hypertension and benign prostatic hypertrophy. Patient reported no significant surgical history. The patient reported the onset of symptoms 1 week prior to presentation. Patient denies current NSAID use nor aspirin-containing products. He reported that he was recently seen by his primary care physician regarding this issue. He reported that he was started on iron supplements and told to take the iron supplements daily. He reported that he adheres to what his primary care physician told him however the episodes of bloody stools never stopped. The patient subsequently presented to the ED for further evaluation. The patient was assessed at the time of ED presentation. The patient was noted to be tachycardic with a heart rate noted at 141. Labs were obtained; complete blood count reported white blood cell count at 15.8, hemoglobin 4.6, hematocrit 15.7, platelet count 8460. Basic metabolic profile reported sodium at 144, potassium 4.2, chloride 112, carbon dioxide 23, BUN 44, creatinine 2.30, and glucose at 118. Digital examination was performed at bedside; heme-positive stools were noted. Abdomin the patient was subsequently admitted al x-ray was performed no significant intra-abdominal processes were noted. Chest x-ray was essentially unremarkable for any acute cardiopulmonary processes. The patient was subsequently admitted to the hospitalist service for continuation of care. A gastroenterology consultation was requested at the time of admission. Due to the severity of the patient's anemia, the patient was placed in the critical care setting. Aggressive hydration and replacement of blood products were initiated at the time of admission. The patient was seen and evaluated by gastroenterology on the day of admission. On January 18, 2017 the patient underwent esophagogastroduodenoscopy with cold biopsy for pathology. During the procedure, no gross evidence of an upper GI bleeding source was noted however some mild gastritis was seen and a small hiatal hernia but otherwise relatively normal upper endoscopy. On January 19, 2017, the patient underwent colonoscopy with hot biopsy polypectomy; which was significant for a single polyp however it was not thought to be the source of bleeding. In addition the patient was noted to have some large internal hemorrhoids throughout which could be potentially a source of bleeding as well as jensen diverticulosis of a mild nature extending up to the ascending colon. The patient's condition gradually improved. The patient's hemoglobin and hematocrit responded very well to the transfusion of blood products. Today the patient's hemoglobin and hematocrit is noted at 9.0 and 29.3. The patient has not experienced any further bowel movements containing blood. The patient's condition is stable. Today, we feel that he is indeed appropriate for discharge to follow-up with his primary care physician as indicated. In addition, the patient has been instructed to follow-up with gastroenterology in 6-8 weeks for reevaluation. Diagnosis - Discharge Diagnosis (1) Acute kidney injury Status: Acute (2) Anemia Status: Acute (3) Upper GI bleed Status: Acute Discharge Plan - Discharge Data Disposition: Disch To Home/Self Care - Discharge Medications New Pantoprazole Tab [Protonix Tab] 40 mg PO DAILY tablet Continue amLODIPine [Norvasc] 10 mg PO DAILY Tamsulosin [Flomax] 0.8 mg PO DAILY Ferrous Sulfate 325 mg PO BID Cyanocobalamin (Vitamin B-12) [Vitamin B-12] 1,000 mcg PO DAILY Atenolol 50 mg PO DAILY - Follow Up or Referral - Forms/Instructions Exam - Constitutional Vitals: Period Temp Pulse Resp BP Sys/Yanez Pulse Ox Last 24 Hr 97.5 F-98.5 F 76-108 16-20 101-151/66-93 95-100 Discharge Results Labs on day of discharge: Labs from last 24 hours 01/20/17 01/20/17 01/19/17 05:19 05:19 11:12 WBC 11.2 RBC 3.16 L Hgb 9.0 L 9.4 L Hct 29.3 L 30.4 L MCV 92.7 MCH 29 MCHC 30.7 L RDW 18.0 H Plt Count 450 H MPV 9.5 L Neut % (Auto) 77.0 H Lymph % (Auto) 13.1 L [place] % (Auto) 6.3 Eos % (Auto) 3.0 Baso % (Auto) 0.1 Neut # (Auto) 8.6 H Lymph # (Auto) 1.5 [place] # (Auto) 0.7 Eos # (Auto) 0.3 Baso # (Auto) 0.0 Immature Gran % 0.5 Nucleated RBC % 0.0 Immature Gran # 0.06 Nucleated RBCs # 0.00 INR 1.0 PT Patient/Control Mix 11.1 DS: Provider Date of admission: 01/17/17 12:14 Primary care physician: . No PCP Attending physician on admission: Phyllis Tineo MD Consults: 01/18/17 06:00 Consult to Anesthesiology [CONS] Routine Consulting Provider: Reason for Anesthesiology: Pre-op Clearance Discharging clinician: Verónica Fields CNP <Jordon Velazquez - Last Filed: 01/20/17 10:39> Hospital Course - Time spent with patient Time with patient DS: Greater than 30 minutes (35) Diagnosis - Discharge Diagnosis (1) Acute kidney injury Status: Chronic (2) Melena Status: Resolved (3) Acute posthemorrhagic anemia Status: Resolved (4) GIB (gastrointestinal bleeding) Status: Resolved Discharge Plan - Discharge Data Condition at Discharge: Stable Discharge Diet: high fiber diet Activity: increase activity as tolerated Hygiene: no restrictions Weight Bearing at Discharge: weight bear as tolerated Contact your physician if you experience:: Shortness of breath, Bleeding Exam - Constitutional General appearance: over weight - Head Head exam: Present: normocephalic, atraumatic - Eye Eye exam: Present: EOMI Pupils: Present: MARTY - ENT ENT exam: Present: normal exam - Neck Neck exam: Present: normal inspection - Respiratory Respiratory exam: Present: clear to auscultation bilaterally. Absent: rhonchi, wheezes - Cardiovascular Cardiovascular exam: Present: regular rate and rhythm - GI/Abdominal GI/Abdominal exam: Present: normal bowel sounds, soft. Absent: tenderness, rebound - Extremities Exam Extremities exam: Present: normal inspection - Back Exam Back exam: Present: normal inspection - Neurological Exam Neurological exam: Present: alert, oriented X3 - Psychiatric Psychiatric exam: Present: normal affect, normal mood - Skin Skin exam: Present: warm, intact
[2017-01-20] MEDS: TAMSULOSIN 0.4 MG CAPSULE PO SCH (08:14)
[2017-01-20] MEDS ORDERED: DESITIN 4OZ/NYSTATIN 15 GRAM MIXTURE PASTE TOP SCH (09:00)
[2017-01-20] MEDS ORDERED: PANTOPRAZOLE 40 MG TABLET PO SCH (09:00)
[2017-01-20 12:39] VITALS: BP 146/86
[2017-01-20] MEDS ORDERED: LIDOCAINE 1% 5 ML VIAL ONE (13:00)
[2017-01-20] MEDS ORDERED: PROPOFOL 200 MG/20 ML VIAL IV ONE (13:00)
--- NOTE | 2017-01-21 11:32 | Pathology Report from [facility] ---
[facility] ACCESSION # : [id number] PATIENT NAME : Jesus Cedillo ORDERING DR : Portillo Momin MD CLINICAL HX: Rectal bleed, anemia POST-OP DX: Same SPECIMEN INFO: Ascending colon polyp GROSS DESCRIPTION: Received in formalin labeled JESUS CEDILLO is a pink holt portion of tissue measuring 0.3 cm submitted in one cassette. DIAGNOSIS FOR JESUS CEDILLO: ASCENDING COLON POLYP: Tubular adenoma. COLLECTED DATE: 01/19/2017 [facility] REPORT DATE: 01/20/2017 ELECTRONICALLY SIGNED BY: Sabrina Christensen M.D. 01/20/2017 - 9:44:09 [facility]ENTERJanelle
== END 2017-01-20 16:00 | disposition home or self-care (01) | DRG 378 ==
LOC: N.ED 10:39 → N.EDINP 12:14 → SUATTDRO 12:14 → N.ICU 12:53 → N.5E 01-18 20:19
PROVIDERS: ADMIT Internal Medicine; ATTEND Internal Medicine

== ENCOUNTER 2018-06-25 09:57 | Inpatient (IN) ==
[2018-06-25 10:51] LABS: Basophils % 0.3 % (0.0-0.8); Lymphocytes % 8.4 % (21.2-54.2); Neutrophils % 82.6 % (38.7-73.9); Platelet Count 519 T/CUMM (130-400)
[2018-06-25 10:57] LABS: Eosinophils # 0.1 10*3/uL (0.0-0.87); Eosinophils % 1.1 % (0.00-10.9); Hematocrit 23.7 VOL% (42.0-52.0); Hemoglobin 6.8 GM/DL (14.0-18.0); Immature Granulocytes % 0.5 %; Immature Granulocytes Absolute 0.06 #; Lymphocytes # 1.1 10*3/uL (1.4-4.0); Mean Corpuscular HGB Conc 28.7 GM/DL (32-36); Mean Corpuscular Hemoglobin 23 PG (27-34); Mean Corpuscular Volume 80.9 FL (87-102); Mean Platelet Volume 9.5 FL (9.6-12.0); Monocytes # 0.9 10*3/uL (0.11-0.8); Monocytes % 7.1 % (1.7-12.7); Neutrophils # 10.6 10*3/uL (1.4-7.4); Red Blood Count 2.93 MC/CUMM (3.8-5.5); White Blood Count 12.8 T/CUMM (4-12)
[2018-06-25 11:09] LABS: INR 1.2; PT Patient Result 12.7 SECS
[2018-06-25] MEDS ORDERED: SODIUM CHLORIDE 0.9% 1,000 ML IV PRN ×2 (11:09→11:53)
[2018-06-25 11:22] LABS: Alanine Aminotransferase < 9 U/L (16-61); Albumin 1.8 G/DL (3.4-5.0); Alkaline Phosphatase 65 U/L (45-117); Aspartate Amino Transferase 7 U/L (0-37); Blood Urea Nitrogen 22 MG/DL (7-18); Calcium 8.5 MG/DL (8.5-10.1); Glucose 113 MG/DL (74-106); Osmolality,Calculated 280.5 MOS/KG (273-304); Potassium 4.2 MMOL/L (3.5-5.1); Sodium 139 MMOL/L (136-145)
[2018-06-25] MEDS ORDERED: ZALEPLON 5 MG CAPSULE PO PRN (11:43)
[2018-06-25] MEDS ORDERED: ONDANSETRON 4 MG/2 ML VIAL IV PRN (11:43)
[2018-06-25] MEDS ORDERED: MORPHINE 4 MG/1 ML VIAL IV PRN (11:43)
[2018-06-25] MEDS ORDERED: ACETAMINOPHEN 325 MG TABLET PO PRN (11:43)
[2018-06-25] MEDS ORDERED: SODIUM CHLORIDE 0.9% 1,000 ML IV SCH (12:00)
[2018-06-25 12:59] LABS: Hypochromasia 2+; Microcytosis 1+
[2018-06-25 13:00] LABS: Platelet Estimate Increased
[2018-06-25 14:28] LABS: Hematocrit 21.4 VOL% (42.0-52.0)
[2018-06-25 14:30] LABS: Hemoglobin 6.2 GM/DL (14.0-18.0)
[2018-06-25] MEDS: PANTOPRAZOLE INJ 200 MG in SODIUM CHLORIDE 0.9% 250 ML IV SCH (15:03)
[2018-06-25] MEDS: PIPERACILLIN/TAZOBACTAM 3,375 MG in SODIUM CHLORIDE 0.9% 100 ML IV SCH ×2 (16:38→23:17)
[2018-06-25] MEDS ORDERED: FERROUS SULFATE 325 MG TABLET PO SCH (21:00)
[2018-06-26 01:12] LABS: Basophils % 0.4 % (0.0-0.8); Eosinophils # 0.1 10*3/uL (0.0-0.87); Eosinophils % 1.1 % (0.00-10.9); Hematocrit 25.4 VOL% (42.0-52.0); Hemoglobin 7.8 GM/DL (14.0-18.0); Immature Granulocytes % 0.5 %; Immature Granulocytes Absolute 0.06 #; Lymphocytes # 1.1 10*3/uL (1.4-4.0); Lymphocytes % 9.3 % (21.2-54.2); Mean Corpuscular HGB Conc 30.7 GM/DL (32-36); Mean Corpuscular Hemoglobin 25 PG (27-34); Mean Corpuscular Volume 81.2 FL (87-102); Monocytes # 0.8 10*3/uL (0.11-0.8); Monocytes % 6.8 % (1.7-12.7); Neutrophils # 9.3 10*3/uL (1.4-7.4); Neutrophils % 81.9 % (38.7-73.9); Platelet Count 458 T/CUMM (130-400); Red Blood Count 3.13 MC/CUMM (3.8-5.5); Red Cell Distribution Width 17.2 % (9.3-17.3); White Blood Count 11.3 T/CUMM (4-12)
[2018-06-26 01:35] LABS: Alanine Aminotransferase < 6 U/L (16-61); Albumin 1.6 G/DL (3.4-5.0); Alkaline Phosphatase 58 U/L (45-117); Aspartate Amino Transferase 7 U/L (0-37); Blood Urea Nitrogen 23 MG/DL (7-18); Calcium 8.1 MG/DL (8.5-10.1); Glucose 99 MG/DL (74-106); Osmolality,Calculated 278.7 MOS/KG (273-304); Sodium 138 MMOL/L (136-145); Total Protein 8.4 G/DL (6.4-8.3)
[2018-06-26 05:24] LABS: Hematocrit 23.4 VOL% (42.0-52.0)
[2018-06-26] MEDS ORDERED: SODIUM CHLORIDE 0.9% 1,000 ML IV PRN ×2 (06:52→10:08)
[2018-06-26] MEDS: PIPERACILLIN/TAZOBACTAM 3,375 MG in SODIUM CHLORIDE 0.9% 100 ML IV SCH (07:19)
[2018-06-26] MEDS ORDERED: amLODIPine 10 MG TABLET PO SCH (09:00)
[2018-06-26] MEDS ORDERED: ATENOLOL 50 MG TABLET PO SCH (09:00)
[2018-06-26] MEDS ORDERED: CYANOCOBALAMIN 500 MCG TABLET PO SCH (09:00)
[2018-06-26] MEDS ORDERED: TAMSULOSIN 0.4 MG CAPSULE PO SCH (09:00)
[2018-06-26] MEDS ORDERED: LOSARTAN 50 MG TABLET PO SCH (09:00)
[2018-06-26] MEDS ORDERED: hydrOXYzine HCL 25 MG TABLET PO SCH (09:00)
[2018-06-26 12:05] VITALS: BP 137/74
[2018-06-26] MEDS: PANTOPRAZOLE INJ 200 MG in SODIUM CHLORIDE 0.9% 250 ML IV SCH (12:56)
== END 2018-06-26 01:00 | disposition hospice, home (50) | DRG 300 ==
LOC: N.ED 09:57 → N.EDINP 11:43 → SUATTDRO 11:43 → N.5E 12:06
PROVIDERS: ADMIT Internal Medicine; ATTEND Internal Medicine